=== PATIENT | male | born 1950 | race Caucasian/White ===

== ENCOUNTER 2016-06-26 08:19 | Inpatient (IN) ==
[2016-06-26] MEDS ORDERED: SALINE LOCK IV FLUID XX ONE (09:23)
[2016-06-26] MEDS ORDERED: NORCO-10 PO PRN (09:27)
[2016-06-26] MEDS ORDERED: BETAPACE PO ONE (09:27)
--- NOTE | 2016-06-26 09:46 | EKG Report ---
Test Performed on : 06/26/2016 09:25:13 AM Test Reason : A-Fib Betapace load Blood Pressure : / mmHG Vent. Rate : 071 BPM Atrial Rate : 300 BPM P-R Int : 000 ms QRS Dur : 104 ms QT Int : 352 ms P-R-T Axes : 000 037 213 degrees QTc Int : 382 ms Atrial fibrillation. with premature ventricular or aberrantly conducted complexes. ST \T\ T wave abnormality, consider lateral ischemia Abnormal ECG When compared with ECG of 25-AUG-2015 16:14, QT has shortened Confirmed by María BAUTISTA, Lasha Mendez ([id number]) on 06/26/2016 10:57:49 AM
[2016-06-26 09:55] LABS: MANUAL DIFF NEEDED? NO
[2016-06-26 09:59] LABS: BASO% 0.2 % (0.0-0.8); EOS% 1.2 % (0.0-10.0); HEMATOCRIT 37.1 % (42.0-52.0); HEMOGLOBIN 12.8 g/dL (14.0-18.0); LYMPH# 2.15 X1000 (1.2-3.4); LYMPH% 25.7 % (20.5-51.1); MCH 33.3 PG (27-31); MCHC 34.5 g/dL (33-37); MCV 96.6 FL (81-99); MONO# 0.85 X1000 (0.11-0.59); MONO% 10.2 % (1.7-9.3); MPV 10.5 FL (7.4-10.4); NEUT% 62.7 % (42.2-75.2); PLT 242 X1000 (130-400); RBC 3.84 XMIL (4.7-6.1)
[2016-06-26 10:12] LABS: AGAP 10; BUN 16 mg/dL (8-22); CHLORIDE 101 mmol/L (98-107); COSMO 276; POTASSIUM 4.8 mmol/L (3.5-5.1); SODIUM 137 mmol/L (136-145); TCO2 26 mmol/L (25-35)
[2016-06-26] MEDS: ALDACTONE PO SCH (10:25)
[2016-06-26] MEDS: BETAPACE PO SCH ×2 (10:25→20:56)
[2016-06-26] MEDS: NORCO-10 PO PRN (11:40)
[2016-06-26] MEDS: ELIQUIS PO SCH (20:55)
[2016-06-26] MEDS ORDERED: ELIQUIS PO SCH (21:00)
[2016-06-26] MEDS ORDERED: LIPITOR PO SCH ×2 (21:00)
[2016-06-26] MEDS ORDERED: BETAPACE PO SCH (21:00)
--- NOTE | 2016-06-27 04:02 | HISTORY AND PHYSICAL ---
IMPRESSION: 1. Persistent atrial fibrillation with associated fatigue. 2. Atherosclerotic coronary disease. Patient is status post coronary angioplasty/stenting of left anterior descending coronary artery August 2015 with drug-eluting stent. 3. Hypertension. 4. Hyperlipidemia. PLAN: 1. Admit to telemetry. 2. Initiate sotalol 80 mg twice daily. 3. JULIETTE cardioversion planned for a.m. 4. Continue Eliquis and Plavix but go ahead and discontinue aspirin as patient is well over 6 months after his coronary intervention. HISTORY: This 66-year-old, white male, with past history of 8 atherosclerotic coronary disease, atrial fibrillation, hypertension, hyperlipidemia, is now admitted to initiate sotalol and pursue JULIETTE cardioversion. He has had symptoms of exertional shortness of breath and fatigue beginning last year. He was found to have atrial fibrillation. He had noninvasive workup which suggested underlying coronary disease. He had angioplasty/stenting of left anterior descending coronary with drug-eluting stent to 08/26/2015. He also had cardioversion of atrial fibrillation 08/25/2015 with muslim of sinus rhythm. He had repeat cardioversion 09/27/2015 with muslim of sinus rhythm. However, he has had recurrent atrial fibrillation and continues with fatigue exertional shortness of breath. He has not had any angina. He recently returned for followup and was in atrial fibrillation with controlled rate. At this point, it was elected to bring him in for sotalol loading and JULIETTE cardioversion. PAST MEDICAL HISTORY: 1. Atherosclerotic coronary disease, as outlined above. 2. Atrial fibrillation. Initially paroxysmal but now persistent. 3. Hypertension. 4. Hyperlipidemia. 5. Aortic valve disorder with moderate aortic regurgitation by echocardiography November 2015. 6. Gastroesophageal reflux disease. 7. History of peptic ulcer disease. 8. Past surgical history includes unspecified eye surgery, prostate surgery, exploratory laparotomy. 9. He has no known drug allergies. MEDICATIONS: Prior to admission as listed. SOCIAL HISTORY: He continues to work. He is very active. He has history of previous cigarette use but no longer smokes. He does not use alcohol. He is . FAMILY HISTORY: Negative for premature coronary disease. REVIEW OF SYSTEMS: Pulmonary: Noteworthy for some exertional shortness of breath but otherwise negative. Gastrointestinal: Negative. Constitutional: Noteworthy for fatigue but otherwise negative. Remaining review of systems negative/noncontributory with 14 total systems reviewed. PHYSICAL EXAMINATION: GENERAL: This is a pleasant, older, white male, in no distress. VITAL SIGNS: As recorded are stable. HEENT: Extraocular movements appear intact. Mucous membranes are moist. NECK: Supple. Jugular venous distention. No carotid bruits. CHEST: Clear to auscultation. CARDIAC: Exam reveals an irregular rate and rhythm without appreciable murmur or gallop. ABDOMEN: Soft, nontender. EXTREMITIES: Without edema. NEUROLOGIC: Exam reveals him to be alert and fully oriented. Speech is fluent. He moves all 4 extremities equally well. SKIN: Warm and dry. PSYCHIATRIC: Exam reveals his mood to be appropriate. DATA: ECG demonstrates atrial fibrillation with premature ventricular aberrantly conducted complexes and nonspecific ST and T-wave abnormality. cc: Billy Sutherland MD
[2016-06-27] MEDS ORDERED: PRILOSEC PO SCH (07:00)
[2016-06-27] MEDS ORDERED: PROTONIX PO SCH (07:00)
--- NOTE | 2016-06-27 07:01 | EKG Report ---
Test Performed on : 06/27/2016 06:34:09 AM Test Reason : afib Blood Pressure : / mmHG Vent. Rate : 075 BPM Atrial Rate : 300 BPM P-R Int : 000 ms QRS Dur : 102 ms QT Int : 382 ms P-R-T Axes : 000 025 215 degrees QTc Int : 426 ms Atrial fibrillation. with premature ventricular or aberrantly conducted complexes. ST \T\ T wave abnormality, consider lateral ischemia Abnormal ECG When compared with ECG of 26-JUN-2016 09:25, No significant change was found Confirmed by María BAUTISTA, Lasha Mendez ([id number]) on 06/28/2016 7:16:27 AM
[2016-06-27] MEDS: ELIQUIS PO SCH (08:16)
[2016-06-27] MEDS: BETAPACE PO SCH (08:16)
[2016-06-27] MEDS: ALDACTONE PO SCH (08:16)
[2016-06-27] MEDS ORDERED: PLAVIX PO SCH (09:00)
[2016-06-27] MEDS ORDERED: ALDACTONE PO SCH (09:00)
[2016-06-27] MEDS: NORCO-10 PO PRN (09:31)
[2016-06-27] MEDS ORDERED: SODIUM CHLORIDE 0.9% 10 ML ONE (09:35)
[2016-06-27] MEDS ORDERED: XYLOCAINE 4% TOPICAL SOLUTION ONE (09:35)
[2016-06-27] MEDS ORDERED: XYLOCAINE 2% VISCOUS ONE (09:35)
[2016-06-27] MEDS ORDERED: NS 1,000 ML ONE (10:01)
[2016-06-27] MEDS ORDERED: ANESTHESIA PB SET 88 IN 5742 ONE (10:01)
[2016-06-27] MEDS ORDERED: CLAVE TWINSITE 32 IN 11959 ONE (10:01)
[2016-06-27] MEDS ORDERED: DIPRIVAN 1% ONE (10:52)
--- NOTE | 2016-06-27 10:58 | OPERATIVE NOTE ---
PROCEDURE DATE: 06/27/2106 PROCEDURE: Cardioversion for atrial fibrillation. DESCRIPTION OF PROCEDURE: Patient was brought to the cardiac catheterization laboratory. He had a transesophageal echocardiogram. Was anesthetized using Versed and propofol given intravenously. Please see detailed anesthesia record. Patient was cardioverted with a single shock, synchronized, 100 joules. The patient was in sinus rhythm. There were no complications. cc: MD Billy Bolden MD
--- NOTE | 2016-06-27 11:05 | ECHO REPORT ---
ORDER DATE: 06/27/2016 PROCEDURE: Transesophageal echocardiogram prior to cardioversion. DATE OF PROCEDURE: 06/27/2016. DESCRIPTION OF PROCEDURE IN DETAIL: Informed consent was obtained from the patient. The patient was brought to the cardiac catheterization laboratory. His oropharynx was anesthetized using lidocaine swish and swallow and Cetacaine spray. The patient was given Versed and propofol for anesthesia; please see detailed anesthesia records. A transesophageal probe was easily passed into the esophagus. Ultrasound pictures were obtained. FINDINGS: 1. The left atrium was normal. Left atrial appendage was normal. Right atrium was normal. 2. Saline contrast study was negative for patent foramen ovale. 3. Aortic valve leaflets are trileaflet. 4. Mitral valve was normal. 5. Pulmonic valve was normal. 6. Tricuspid valve was normal. 7. Normal left ventricular cavity size. Estimated ejection fraction of 55%. 8. Ascending aorta was normal. 9. Descending aorta had layered plaque. 10. Doppler studies revealed mild mitral regurgitation. There is no aortic stenosis. There is mild aortic regurgitation. 11. There is mild tricuspid regurgitation. 12. There is mild pulmonary regurgitation. 13. There was no pericardial effusion or obvious intracardiac mass or thrombus noted. 14. Would recommend proceeding with cardioversion. cc: MD Billy Bolden MD
[2016-06-27] MEDS ORDERED: XYLOCAINE-MPF 2% ONE (11:42)
--- NOTE | 2016-06-27 11:53 | PROGRESS NOTE ---
DATE: 06/27/2016 SUBJECTIVE: The patient continues without chest compliance following JULIETTE cardioversion this morning. He is maintaining sinus bradycardia with a heart rate of 56 beats per minute. OBJECTIVE: Vital Signs: Pulse 56 beats per minute. Blood pressure 116/71. Chest: Clear to auscultation. Cardiac Exam: Reveals a regular rate and rhythm without appreciable murmur or gallop. IMPRESSION: 1. Status post successful transesophageal echocardiography cardioversion, restoring sinus rhythm. 2. Persistent atrial fibrillation. Patient now in sinus rhythm. 3. Atherosclerotic coronary disease. 4. Hypertension. 5. Hyperlipidemia. PLAN: 1. Continue to monitor on telemetry. 2. Continue sotalol 80 mg twice daily. 3. Continue Eliquis and Plavix and leave off aspirin. 4. If patient continues in sinus rhythm without recurrence of arrhythmia, we will discharge this evening and follow up in 2 weeks with ECG. cc: Billy Sutherland MD
[2016-06-27 15:24] VITALS: BP 109/68
--- NOTE | 2016-06-28 05:25 | EKG Report ---
Test Performed on : 06/27/2016 11:13:26 AM Test Reason : post cath Blood Pressure : / mmHG Vent. Rate : 051 BPM Atrial Rate : 051 BPM P-R Int : 176 ms QRS Dur : 100 ms QT Int : 454 ms P-R-T Axes : 052 034 147 degrees QTc Int : 418 ms Sinus bradycardia. Nonspecific ST and T wave abnormality Abnormal ECG When compared with ECG of 27-JUN-2016 06:34, (Unconfirmed) Sinus rhythm. has replaced Atrial fibrillation. Confirmed by María BAUTISTA, Lasha Mendez ([id number]) on 06/28/2016 7:17:03 AM
== END 2016-06-27 16:40 | disposition home or self-care (01) ==
LOC: 3S 08:19
PROVIDERS: ADMIT Internal Medicine Cardiovascular Disease; ATTEND Internal Medicine Cardiovascular Disease